=== PATIENT | male | born 1940 | race Caucasian/White ===

== ENCOUNTER 2018-02-18 11:20 | Inpatient (IN) ==
[2018-02-18] MEDS ORDERED: Sod Chloride 0.9% Inj 1,000 ML IV.SIG ONE ×2 (11:54→14:02)
[2018-02-18] MEDS ORDERED: Acetaminophen 325 MG Tablet PO ONE (11:54)
--- NOTE | 2018-02-18 12:01 | ED ---
HPI General Chief Complaint: Abdominal Pain Stated Complaint: evac/medical Time Seen by Provider: 02/18/18 11:46 Source: patient Mode of arrival: EMS Limitations: no limitations and other (hard of hearing right side) History of Present Illness HPI Narrative: 77-year-old male with PMH of gout, GERD, HTN, CAD status post CABG and stenting, on Pradaxa presents to the ED via EMS for evaluation of 24 hour history of shaking chills and one episode of abdominal pain. Patient states that he noticed chills and fever about 1:00 yesterday afternoon. He states that he had an episode of cramping right upper quadrant and bilateral lower quadrant abdominal pain today approximately 30 minutes before arrival. Currently asymptomatic. Pain is described as cramping, 8/10, no alleviating or exacerbating factors reported. The patient denies cold or flu symptoms, CP, SOB , loss of appetite, nausea, vomiting, dysuria, weakness of the extremities. He states that his last bowel movement was well formed, nonbloody, 3 days ago. He states this is not unusual for him. He endorses colonoscopy within the last 2 years. He endorses history of abdominal surgery, unsure of the procedure performed. Patient is visiting from [place]. He treated at home with ibuprofen, last dose early this morning. Per EVAC temp 100.3 on scene, administered 500mL fluid bolus en route. Related Data Home Medications Medication Instructions Recorded Confirmed allopurinol 100 mg PO DAILY 02/18/18 02/18/18 atorvastatin [Lipitor] 80 mg PO DAILY 02/18/18 02/18/18 coQ10 (ubiquinol) 200 mg PO DAILY 02/18/18 02/18/18 dabigatran etexilate [Pradaxa] 150 mg PO BID 02/18/18 02/18/18 levothyroxine [Synthroid] 75 mcg PO DAILY 02/18/18 02/18/18 metoprolol tartrate 25 mg PO DAILY 02/18/18 02/18/18 pantoprazole 20 mg PO DAILY 02/18/18 02/18/18 Allergies Allergy/AdvReac Type Severity Reaction Status Date / Time iodine Allergy Severe Swelling Verified 02/18/18 12:04 of Lip/Tongue/Throat Review of Systems ROS: all other systems reviewed are negative [facility] Medical History Medical History Aortic valve disorder (Acute) Arthritis (Acute) Bowel obstruction (Acute) CAD (coronary artery disease) (Acute) Cataract (Acute) Cataract fragments in both eyes following surgery (Acute) Constipation (Acute) Femoro-popliteal artery disease (Acute) GERD (gastroesophageal reflux disease) (Acute) Gout (Acute) HTN (hypertension) (Acute) High cholesterol (Acute) Hypothyroid (Acute) Surgical History Surgical History H/O aortic valve replacement (Acute) H/O exploratory laparotomy (Acute) History of cardiac cath (Acute) History of intestinal surgery (Acute) History of tonsillectomy (Acute) S/P CABG x 3 (Acute) Stented coronary artery (Acute) Family History Family History Other Family history of hypertension Social History Social History Substance History: No History of Abuse Second Hand Smoke Exposure: No Smoking Status: Never smoker How Often Do You Have a Drink Containing Alcohol: 2 to 4 times a month Recent Travel in [facility] within the Last 8 Weeks: No Recent Out of Country Travel within the Last 8 Weeks: No Exam Narrative Exam Narrative: GENERAL: Well-nourished, well-developed, hard of hearing on the right side white male in no acute distress. SKIN: Focused skin assessment warm/diaphoretic. HEAD: Atraumatic. Normocephalic. EYES: Pupils equal and round. No scleral icterus. No injection or drainage. ENT: No nasal bleeding or discharge. Mucous membranes pink and moist. NECK: Trachea midline. No JVD. CARDIOVASCULAR: Regular rate and rhythm. No murmur appreciated. RESPIRATORY: No accessory muscle use. Clear to auscultation. Breath sounds equal bilaterally. GASTROINTESTINAL: Abdomen soft, non-tender, nondistended. Hypoactive bowel sounds. Hepatic and splenic margins not palpable. MUSCULOSKELETAL: No obvious deformities. No clubbing. No cyanosis. No edema. NEUROLOGICAL: Awake and alert. No obvious cranial nerve deficits. Motor grossly within normal limits. Normal speech. PSYCHIATRIC: Appropriate mood and affect; insight and judgment normal. Course Initial Documented Vital Signs Temperature 99.3 F 02/18/18 11:51 Pulse Rate 86 02/18/18 11:51 Respiratory Rate 25 H 02/18/18 11:51 Blood Pressure 119/59 L 02/18/18 11:51 Pulse Oximetry 95 02/18/18 11:51 Last Documented Vital Signs Temperature 99.3 F 02/18/18 11:54 Pulse Rate 64 02/18/18 19:07 Respiratory Rate 18 02/18/18 19:07 Blood Pressure 128/56 L 02/18/18 19:07 Pulse Oximetry 99 02/18/18 19:07 Medical Decision Making MDM Narrative Medical decision making narrative: 77-year-old male with PMH of gout, GERD, HTN , CAD status post CABG and stenting, on Pradaxa presents to the ED via EMS for evaluation of 24 hour history of shaking chills and one episode of abdominal pain. Patient states that he noticed chills and fever about 1:00 yesterday afternoon. He states that he had an episode of cramping right upper quadrant and bilateral lower quadrant abdominal pain today approximately 30 minutes before arrival. Currently asymptomatic. Temp 99.3, respiratory rate 25, O2 sats 95% on room air, BP 119/59 on presentation. Physical exam reveals a pleasant white male in no acute distress. Lung sounds are clear bilaterally. Abdominal exam is unremarkable. IV was established. Patient was administered 1 L normal saline. CBC and CMP are unremarkable. X-ray reveals possible nodular or infiltrative processes in the left lingular area. D-dimer elevated. Patient is allergic to contrast dye. VQ scan low probability for DVT. CT chest reveals patchy left lower lobe infiltrate. Nodule is again seen, recommend outpatient follow-up. UA with evidence of UTI. Patient was administered 750 mg Levaquin IV. I discussed the results of the workup with the patient and his . Given his persistent hypotension, BP now 115/55 despite 2 L normal saline bolus will plan for observation admission. Patient and his are agreeable to this plan. I spoke with Dr. Crespo who agrees to accept the patient to the medicine service. Please see medicine notes for disposition. Medical Screen Exam Complete: Yes Emergency Medical Condition: Yes Lab Data Result diagrams: 02/18/18 12:04 02/18/18 12:04 Lab Results 02/18/18 02/18/18 02/18/18 Range/Units 12:04 12:04 12:04 WBC 6.7 (4.0-11.0) th/mm3 RBC 4.47 L (4.50-5.90) mil/mm3 Hgb 13.1 (13.0-17.0) gm/dL Hct 38.9 L (39.0-51.0) % MCV 86.8 (80.0-100.0) fL MCH 29.4 (27.0-34.0) pg MCHC 33.8 (32.0-36.0) % RDW 14.9 (11.6-17.2) % Plt Count 172 (150-450) th/mm3 MPV 7.8 (7.0-11.0) fL Neut % (Auto) 89.8 H (16.0-70.0) % Lymph % (Auto) 7.5 L (9.0-44.0) % [place] % (Auto) 1.8 (0.0-8.0) % Eos % (Auto) 0.6 (0.0-4.0) % Baso % (Auto) 0.3 (0.0-2.0) % Neut # (Auto) 6.0 (1.8-7.7) th/mm3 Lymph # (Auto) 0.5 L (1.0-4.8) th/mm3 [place] # (Auto) 0.1 (0.0-0.9) th/mm3 Eos # (Auto) 0.0 (0.0-0.4) th/mm3 Baso # (Auto) 0.0 (0.0-0.2) th/mm3 WBC Differential . Differential Comment Auto diff final PT 14.0 H (9.8-11.6) sec INR 1.4 Ratio D-Dimer Quant (PE/DVT) (0.00-0.50) mg/L FEU Sodium (136-145) meq/L Potassium (3.5-5.1) meq/L Chloride (98-107) meq/L Carbon Dioxide (21.0-32.0) meq/L Anion Gap (5-15) meq/L BUN (7-18) mg/dL Creatinine (0.60-1.30) mg/dL Estimated GFR (>89) mL/min Random Glucose (74-106) mg/dL Lactic Acid (0.4-2.0) mmol/L Calcium (8.5-10.1) mg/dL Total Bilirubin (0.2-1.0) mg/dL AST (15-37) U/L ALT (12-78) U/L Alkaline Phosphatase (45-117) U/L Total Protein (6.4-8.2) g/dL Albumin (3.4-5.0) g/dL Lipase 112 (73-393) U/L Urine Color (Yellw/Straw) Urine Clarity (Clear) Urine pH (5.0-8.5) Ur Specific [place] (1.002-1.035) Urine Protein (Neg-Trace) mg/dL Urine Glucose (UA) (Negative) mg/dL Urine Ketones (Negative) mg/dL Urine Occult Blood (Negative) Urine Nitrate (Negative) Urine Bilirubin (Negative) Urine Urobilinogen (Less than 2) mg/dL Ur Leukocyte Esterase (Negative) Urine RBC (0-3) /hpf Urine WBC (0-5) /hpf Urine Bacteria (None) /hpf Urine Mucus (Occasional) /lpf Micro UA Comment Ur Microscopic Review Urine Culture Comments 02/18/18 02/18/18 02/18/18 Range/Units 12:04 12:04 12:20 WBC (4.0-11.0) th/mm3 RBC (4.50-5.90) mil/mm3 Hgb (13.0-17.0) gm/dL Hct (39.0-51.0) % MCV (80.0-100.0) fL MCH (27.0-34.0) pg MCHC (32.0-36.0) % RDW (11.6-17.2) % Plt Count (150-450) th/mm3 MPV (7.0-11.0) fL Neut % (Auto) (16.0-70.0) % Lymph % (Auto) (9.0-44.0) % [place] % (Auto) (0.0-8.0) % Eos % (Auto) (0.0-4.0) % Baso % (Auto) (0.0-2.0) % Neut # (Auto) (1.8-7.7) th/mm3 Lymph # (Auto) (1.0-4.8) th/mm3 [place] # (Auto) (0.0-0.9) th/mm3 Eos # (Auto) (0.0-0.4) th/mm3 Baso # (Auto) (0.0-0.2) th/mm3 WBC Differential Differential Comment PT (9.8-11.6) sec INR Ratio D-Dimer Quant (PE/DVT) 2.38 H (0.00-0.50) mg/L FEU Sodium 139 (136-145) meq/L Potassium 4.0 (3.5-5.1) meq/L Chloride 107 (98-107) meq/L Carbon Dioxide 24.3 (21.0-32.0) meq/L Anion Gap 8 (5-15) meq/L BUN 27 H (7-18) mg/dL Creatinine 1.42 H (0.60-1.30) mg/dL Estimated GFR 49 L (>89) mL/min Random Glucose 80 (74-106) mg/dL Lactic Acid 1.8 (0.4-2.0) mmol/L Calcium 8.2 L (8.5-10.1) mg/dL Total Bilirubin 1.6 H (0.2-1.0) mg/dL AST 16 (15-37) U/L ALT 21 (12-78) U/L Alkaline Phosphatase 92 (45-117) U/L Total Protein 6.6 (6.4-8.2) g/dL Albumin 3.3 L (3.4-5.0) g/dL Lipase (73-393) U/L Urine Color (Yellw/Straw) Urine Clarity (Clear) Urine pH (5.0-8.5) Ur Specific [place] (1.002-1.035) Urine Protein (Neg-Trace) mg/dL Urine Glucose (UA) (Negative) mg/dL Urine Ketones (Negative) mg/dL Urine Occult Blood (Negative) Urine Nitrate (Negative) Urine Bilirubin (Negative) Urine Urobilinogen (Less than 2) mg/dL Ur Leukocyte Esterase (Negative) Urine RBC (0-3) /hpf Urine WBC (0-5) /hpf Urine Bacteria (None) /hpf Urine Mucus (Occasional) /lpf Micro UA Comment Ur Microscopic Review Urine Culture Comments 02/18/18 Range/Units 16:55 WBC (4.0-11.0) th/mm3 RBC (4.50-5.90) mil/mm3 Hgb (13.0-17.0) gm/dL Hct (39.0-51.0) % MCV (80.0-100.0) fL MCH (27.0-34.0) pg MCHC (32.0-36.0) % RDW (11.6-17.2) % Plt Count (150-450) th/mm3 MPV (7.0-11.0) fL Neut % (Auto) (16.0-70.0) % Lymph % (Auto) (9.0-44.0) % [place] % (Auto) (0.0-8.0) % Eos % (Auto) (0.0-4.0) % Baso % (Auto) (0.0-2.0) % Neut # (Auto) (1.8-7.7) th/mm3 Lymph # (Auto) (1.0-4.8) th/mm3 [place] # (Auto) (0.0-0.9) th/mm3 Eos # (Auto) (0.0-0.4) th/mm3 Baso # (Auto) (0.0-0.2) th/mm3 WBC Differential Differential Comment PT (9.8-11.6) sec INR Ratio D-Dimer Quant (PE/DVT) (0.00-0.50) mg/L FEU Sodium (136-145) meq/L Potassium (3.5-5.1) meq/L Chloride (98-107) meq/L Carbon Dioxide (21.0-32.0) meq/L Anion Gap (5-15) meq/L BUN (7-18) mg/dL Creatinine (0.60-1.30) mg/dL Estimated GFR (>89) mL/min Random Glucose (74-106) mg/dL Lactic Acid (0.4-2.0) mmol/L Calcium (8.5-10.1) mg/dL Total Bilirubin (0.2-1.0) mg/dL AST (15-37) U/L ALT (12-78) U/L Alkaline Phosphatase (45-117) U/L Total Protein (6.4-8.2) g/dL Albumin (3.4-5.0) g/dL Lipase (73-393) U/L Urine Color Yellow (Yellw/Straw) Urine Clarity Hazy H (Clear) Urine pH 5.0 (5.0-8.5) Ur Specific [place] 1.008 (1.002-1.035) Urine Protein Negative (Neg-Trace) mg/dL Urine Glucose (UA) Negative (Negative) mg/dL Urine Ketones Trace (Negative) mg/dL Urine Occult Blood Moderate H (Negative) Urine Nitrate Positive H (Negative) Urine Bilirubin Negative (Negative) Urine Urobilinogen 2.0 H (Less than 2) mg/dL Ur Leukocyte Esterase Large H (Negative) Urine RBC 2 (0-3) /hpf Urine WBC 54 H (0-5) /hpf Urine Bacteria Moderate H (None) /hpf Urine Mucus Few H (Occasional) /lpf Micro UA Comment Culture indicated Ur Microscopic Review Not Reportable Urine Culture Comments Culture indicated Imaging Data Radiologist's impression: Chest X-Ray 02/18/18 11:55 CONCLUSION: Mild increased density at the left base likely related to mild atelectasis or consolidation. There is questionable nodularity seen in the left lower lung adjacent to left heart border. This could be followed up with a CT examination of the chest. Pulmonary Perfusion Imaging 02/18/18 14:06 CONCLUSION: Nonsegmental perfusion abnormalities, as such low probability for pulmonary embolism. Chest CT 02/18/18 15:56 CONCLUSION: 1. Lingular infiltrate and small left effusion. 2. Tiny right lung nodules can be followed. Discharge Plan Discharge Disposition Patient Disposition: 30 Still Patient Discharge Details Diagnosis: Left lower lobe pneumonia, Urinary tract infection Physicians Team ED Provider: Matilde Carpio ED Midlevel Provider: Verona Corado Attending Provider: Solo Crespo Discharge Interventions Interventions: Vital Signs Last Done: 02/18/18 16:00 Status ED Status: Admitted Observation Patient
--- NOTE | 2018-02-18 12:46 | XR ---
EXAM DATE: 02/18/2018 12:23 PM EDT AGE/SEX: 77 years / Male INDICATIONS: Fever. Patient complains of groin pain, and is shaking. CLINICAL DATA: This is the patient's initial encounter. Patient reports that signs and symptoms have been present for 1 day and indicates a pain score of 0/10. MEDICAL/SURGICAL HISTORY: None. CABG. Open heart in 2005. COMPARISON: No prior exams available for comparison. FINDINGS: The patient is status post sternotomy. The heart size is normal. There is increased density at the le ft lower lung. There is some questionable nodularity seen at the left lower lung. The right lung is c lear. A significant effusion is not appreciated. CONCLUSION: Mild increased density at the left base likely related to mild atelectasis or consolidation. There is questionable nodularity seen in the left lower lung adjacent to left heart border. This could be fol lowed up with a CT examination of the chest. Electronically signed by: Dez Crandall MD 02/18/2018 12:45 PM EDT
[2018-02-18 13:03] LABS: Baso % (Auto) 0.3 % (0.0-2.0); Eos % (Auto) 0.6 % (0.0-4.0); Hematocrit 38.9 % (39.0-51.0); Hemoglobin 13.1 gm/dL (13.0-17.0); Lymph # (Auto) 0.5 th/mm3 (1.0-4.8); Lymph % (Auto) 7.5 % (9.0-44.0); Mean Corpuscular HGB Conc 33.8 % (32.0-36.0); Mean Corpuscular Hemoglobin 29.4 pg (27.0-34.0); Mean Corpuscular Volume 86.8 fL (80.0-100.0); Mean Platelet Volume 7.8 fL (7.0-11.0); Mono # (Auto) 0.1 th/mm3 (0.0-0.9); Mono % (Auto) 1.8 % (0.0-8.0); Neut % (Auto) 89.8 % (16.0-70.0); Platelet Count 172 th/mm3 (150-450); Red Blood Count 4.47 mil/mm3 (4.50-5.90); Red Cell Distribution Width 14.9 % (11.6-17.2); White Blood Count 6.7 th/mm3 (4.0-11.0)
[2018-02-18 13:08] LABS: INR 1.4 Ratio
[2018-02-18 13:48] LABS: Alanine Aminotransferase 21 U/L (12-78); Albumin 3.3 g/dL (3.4-5.0); Anion Gap 8 meq/L (5-15); Aspartate Aminotransferase 16 U/L (15-37); Blood Urea Nitrogen 27 mg/dL (7-18); Calcium 8.2 mg/dL (8.5-10.1); Carbon Dioxide 24.3 meq/L (21.0-32.0); Chloride 107 meq/L (98-107); Glomerular Filtration Rate 49 mL/min (>89); Glucose,Random 80 mg/dL (74-106); Sodium 139 meq/L (136-145)
[2018-02-18 13:50] LABS: Alkaline Phosphatase 92 U/L (45-117); Total Protein 6.6 g/dL (6.4-8.2)
--- NOTE | 2018-02-18 15:51 | NM ---
EXAM DATE: 02/18/2018 3:45 PM EDT AGE/SEX: 77 years / Male INDICATIONS: Embolism. CLINICAL DATA: This is the patient's initial encounter. Patient reports that signs and symptoms have been present for 1 day and indicates a pain score of 7/10. MEDICAL/SURGICAL HISTORY: Hypertension. Hypothyroidism. Hypercholesterolemia. GERD, Gout, Ar thritis, Coronary artery disease, Femoro-popliteal artery disease. Coronary artery stent. Tonsillec rey. CABG x3, aortic valve replacement, intestinal surgery. COMPARISON: [facility], CHEST 1V SINGLE AP, 02/18/2018. . DOSE: 1.17 mCi Tc99m DTPA aerosol 8.1 mCi Tc99m MAA IV TECHNIQUE: Following five minutes of tidal breathing of DTPA aerosol, planar images of the lungs wer e performed in eight projections. The patient was then injected with MAA, and eight-view perfusion s can was performed. FINDINGS: There is patchy mild nonsegmental perfusion heterogeneity mainly involving the left lung. Ventilation shows similar mild heterogeneity with moderate central deposition of radiotracer. The chest radiogra ph reveals patchy airspace opacity in the left lung base. CONCLUSION: Nonsegmental perfusion abnormalities, as such low probability for pulmonary embolism. Electronically signed by: Dez Pozo MD 02/18/2018 3:50 PM EDT
--- NOTE | 2018-02-18 17:04 | CT ---
EXAM DATE: 02/18/2018 4:51 PM EDT AGE/SEX: 77 years / Male INDICATIONS: Fever. Abnormality on chest x-ray. CLINICAL DATA: This is the patient's initial encounter. Patient reports that signs and symptoms have been present for 1 day and indicates a pain score of 0/10. MEDICAL/SURGICAL HISTORY: Cardiovascular disease. Gastroesophageal reflux disease. Hypertension. CABG. RADIATION DOSE: 13.76 CTDI (mGy) COMPARISON: [facility], CHEST 1V SINGLE AP, 02/18/2018. . TECHNIQUE: Multiple contiguous axial images were obtained through the chest without contrast. Image s were obtained in suspended respiration using multiple row detector helical technique. Using automa dee exposure control and adjustment of the mA and/or kV according to patient size, radiation dose was kept as low as reasonably achievable to obtain optimal diagnostic quality images. DICOM format imag e data is available electronically for review and comparison. FINDINGS: There is small focus of consolidative infiltrate in the lingula. There is mild fissural fluid or thic kening and small volume of dependent left pleural fluid. There are couple of tiny peripheral nodules in the contralateral right lung, neither exceeding 5 mm There is dense atherosclerotic vascular calcification present, including within the coronaries. There is no evidence of mediastinal mass or lymphadenopathy. In the upper abdomen, cysts are present in the liver CONCLUSION: 1. Lingular infiltrate and small left effusion. 2. Tiny right lung nodules can be followed. Electronically signed by: Dez Pozo MD 02/18/2018 5:03 PM EDT
[2018-02-18] MEDS ORDERED: levoFLOXacin 750 MG Tablet PO ONE (17:10)
[2018-02-18 17:28] LABS: Bacteria,Urine Moderate /hpf; Bilirubin,Urine Negative (Negative); Clarity,Urine Hazy (Clear); Color,Urine Yellow (Yellw/Straw); Glucose,Urine (UA) Negative (Negative); Leukocyte Esterase,Urine Large (Negative); Mucus,Urine Few /lpf (Occasional); Nitrite,Urine Positive (Negative); Specific Gravity,Urine 1.008 (1.002-1.035)
[2018-02-18] MEDS ORDERED: Acetaminophen 325 MG Tablet PO PRN (18:32)
[2018-02-18] MEDS ORDERED: Temazepam 15 MG Capsule PO PRN (18:34)
[2018-02-18] MEDS ORDERED: Bisacodyl 10 MG Supp RECTAL PRN (18:34)
[2018-02-18] MEDS ORDERED: Naloxone Inj 0.4 MG/ML Vial IV.PUSH PRN (18:35)
[2018-02-18] MEDS ORDERED: oxyCODONE/Acetaminophen 10/325 Tablet PO PRN (18:35)
[2018-02-18] MEDS ORDERED: Morphine Sulfate Inj 2 MG/ML Vial IV.PUSH PRN (18:35)
[2018-02-18] MEDS ORDERED: Morphine Inj 4 MG/ML Vial IV.PUSH PRN (18:35)
--- NOTE | 2018-02-18 18:37 | P.HPIM ---
History of Present Illness Service: [facility] Primary Care Physician: Steve Medrano Chief Complaint: ABDOMINAL PAIN History of Present Illness: Patient is a 77-year-old male with past medical history of gout, GERD , hypertension, coronary artery disease with history of CABG and stenting as well as aortic valve surgery, and history of peripheral vascular occlusive disease with history of femoropopliteal bypass and femoral/iliac stenting. Patient also is on Pradaxa chronically. He presented to the emergency department with evaluation of a 24 hour history of shaking and chills and some abdominal pain. Patient states that he noted chills and fever yesterday afternoon. He then had some cramping in the right upper quadrant and bilateral lower quadrant abdominal pain today 30 minutes or so prior to presenting to the emergency department. Had cramping pain. Denies any cold or flulike symptoms. Denies any chest pain denies any shortness of breath denies any loss of appetite denies any nausea denies any vomiting denies any dysuria denies any weakness of the extremities. States his last bowel movement was formed 3 days ago. Had a colonoscopy 2 years ago. Has history of abdominal surgeries in the past with exploratory laparotomy patient is visiting from [place]. He is noted to have a temperature of 100.3 was given fluids. Was found to have pneumonia as well as a urinary tract infection. Had been started on Levaquin. We will adjust the medications Review of Systems All other systems reviewed negative except as stated in HPI [facility] - History History Provided By: Patient, Brass Sorter / EMT - Medical History Medical History: Medical History (Last Updated 02/18/18 @ 18:24 by Cayetano Pinto DO) Aortic valve disorder Arthritis Bowel obstruction CAD (coronary artery disease) Cataract Cataract fragments in both eyes following surgery Constipation Femoro-popliteal artery disease GERD (gastroesophageal reflux disease) Gout HTN (hypertension) High cholesterol Hypothyroid - Surgical History Surgical History: Surgical History (Last Updated 02/18/18 @ 12:47 by Otilia Lieberman) H/O aortic valve replacement H/O exploratory laparotomy History of cardiac cath History of intestinal surgery History of tonsillectomy S/P CABG x 3 Stented coronary artery - Family History Family History: Family History (Last Updated 02/18/18 @ 18:24 by Cayetano Pinto DO) Other Family history of hypertension - Tobacco History Second Hand Smoke Exposure: No Tobacco Use In Past 30 Days: No Smoking Status: Never smoker - Alcohol History How Often Do You Have a Drink Containing Alcohol: 2 to 4 times a month - Substance Use History Substance History: No History of Abuse - Travel History Recent Travel in the [place] Within the Last 8 Weeks: No Recent Travel Out of the Country Within the Last 8 Weeks: No - Immunization History Tetanus Immunization: <5 Years Hx Influenza Vaccine This Season: Yes Medications and Allergies Active Medications: Active Medications Al Hydroxide/Mg Hydroxide (Milk Of Tiffany Espinoza) 30 ml PO Q12H PRN PRN Reason: Mild Constipation Allopurinol (Zyloprim) 100 mg PO DAILY DOUG Atorvastatin Calcium (Lipitor) 80 mg PO DAILY DOUG Dabigatran (Pradaxa) 150 mg PO BID DOUG Levofloxacin/Dextrose (Levaquin 750 Mg Premix Inj) 150 mls @ 100 mls/hr IV.SIG ONCE ONE Stop: 02/18/18 18:42 Last Admin: 02/18/18 17:28 Dose: 100 mls/hr Levofloxacin/Dextrose (Levaquin 500 Mg Premix Inj) 500 mg in 100 mls @ 100 mls/ hr IV.SIG Q24H DOUG Lactobacillus Acidophilus (Lactinex) 1 tab PO TID DOUG Levothyroxine Sodium (Synthroid) 75 mcg PO DAILY DOUG Metoprolol Tartrate (Lopressor) 25 mg PO DAILY DOUG Ondansetron HCl (Zofran Inj) 4 mg IV.PUSH Q6H PRN PRN Reason: NAUSEA OR VOMITING Pantoprazole Sodium (Protonix) 20 mg PO DAILY DOUG Sodium Chloride (Ns Flush) 2 ml IV.FLUSH PRN PRN PRN Reason: FLUSH AFTER USING IV ACCESS Last Admin: 02/18/18 12:42 Dose: 2 ml Allergies Allergy/AdvReac Type Severity Reaction Status Date / Time iodine Allergy Severe Swelling Verified 02/18/18 12:04 of Lip/Tongue/Throat Home Medications Medication Instructions Recorded Confirmed Type allopurinol 100 mg PO DAILY 02/18/18 02/18/18 History atorvastatin [Lipitor] 80 mg PO DAILY 02/18/18 02/18/18 History coQ10 (ubiquinol) 200 mg PO DAILY 02/18/18 02/18/18 History dabigatran etexilate [Pradaxa] 150 mg PO BID 02/18/18 02/18/18 History levothyroxine [Synthroid] 75 mcg PO DAILY 02/18/18 02/18/18 History metoprolol tartrate 25 mg PO DAILY 02/18/18 02/18/18 History pantoprazole 20 mg PO DAILY 02/18/18 02/18/18 History Exam Vital signs: Vital Signs 02/18/18 11:51 02/18/18 11:54 02/18/18 12:04 Temperature 99.3 F 99.3 F Pulse Rate 86 82 Respiratory Rate 25 H 25 H Blood Pressure 119/59 L 119/59 L Pulse Oximetry 95 95 02/18/18 16:00 Temperature Pulse Rate 61 Respiratory Rate 18 Blood Pressure 115/55 L Pulse Oximetry 98 Intake & Output 02/17/18 02/18/18 02/18/18 18:59 06:59 18:59 Intake Total 1000 / 1000 Balance 1000 / 1000 Weight 88.451 kg Intake: IV 1000 / 1000 Narrative: GENERAL: Awake alert and oriented 3 talkative and cooperative SKIN: Warm and dry. HEAD: Atraumatic. Normocephalic. EYES: Pupils equal and round. No scleral icterus. No injection or drainage. EOMI ENT: No nasal bleeding or discharge. Mucous membranes pink and moist. Tongue midline NECK: Trachea midline. No JVD. Supple CARDIOVASCULAR: IRRegular rate and rhythm. S1-S2 no S3 or S4 RESPIRATORY: No accessory muscle use. Clear to auscultation. Breath sounds equal bilaterally. Few scattered rhonchi GASTROINTESTINAL: Abdomen soft, non-tender, nondistended. Hepatic and splenic margins not palpable. MUSCULOSKELETAL: Extremities without clubbing, cyanosis, or edema. No obvious deformities. NEUROLOGICAL: Awake and alert. No obvious cranial nerve deficits. Motor grossly within normal limits. Five out of 5 muscle strength in the arms and legs. Normal speech. PSYCHIATRIC: Appropriate mood and affect; insight and judgment normal. Results - Labs CBC & Chem 7: 02/18/18 12:04 02/18/18 12:04 Labs: Short CBC 02/18/18 Range/Units 12:04 WBC 6.7 (4.0-11.0) th/mm3 Hgb 13.1 (13.0-17.0) gm/dL Hct 38.9 L (39.0-51.0) % Plt Count 172 (150-450) th/mm3 BMP 02/18/18 12:04 Sodium 139 Potassium 4.0 Chloride 107 Carbon Dioxide 24.3 BUN 27 H Creatinine 1.42 H Calcium 8.2 L Liver Function 02/18/18 Range/Units 12:04 Total Bilirubin 1.6 H (0.2-1.0) mg/dL AST 16 (15-37) U/L ALT 21 (12-78) U/L Alkaline Phosphatase 92 (45-117) U/L Albumin 3.3 L (3.4-5.0) g/dL Urine 02/18/18 Range/Units 16:55 Urine Color Yellow (Yellw/Straw) Urine Clarity Hazy H (Clear) Urine pH 5.0 (5.0-8.5) Ur Specific [place] 1.008 (1.002-1.035) Urine Protein Negative (Neg-Trace) mg/dL Urine Glucose (UA) Negative (Negative) mg/dL - Imaging Impressions Chest X-Ray 02/18/18 11:55 CONCLUSION: Mild increased density at the left base likely related to mild atelectasis or consolidation. There is questionable nodularity seen in the left lower lung adjacent to left heart border. This could be followed up with a CT examination of the chest. Pulmonary Perfusion Imaging 02/18/18 14:06 CONCLUSION: Nonsegmental perfusion abnormalities, as such low probability for pulmonary embolism. Chest CT 02/18/18 15:56 CONCLUSION: 1. Lingular infiltrate and small left effusion. 2. Tiny right lung nodules can be followed. Caprini VTE Risk Assessment Caprini VTE Risk Assessment: Moderate/High Risk (score >= 2) Caprini Risk Assessment Model: Point Value = 1 Point Value = 2 Point Value = 3 Point Value = 5 Age 41-60 Minor surgery BMI > 25 kg/m2 Swollen legs Varicose veins or History of unexplained or recurrent spontaneous Oral contraceptives or hormone replacement Sepsis (< 1 month) Serious lung disease, including pneumonia (< 1 month) Abnormal pulmonary function Acute myocardial infarction Congestive heart failure (< 1 month) History of inflammatory bowel disease Medical patient at bed rest Age 61-74 Arthroscopic surgery Major open surgery (> 45 min) Laparoscopic surgery (> 45 min) Malignancy Confined to bed (> 72 hours) Immobilizing plaster cast Central venous access Age >= 75 History of VTE Family history of VTE Factor V Leiden Prothrombin [id number] Lupus anticoagulant Anticardiolipin antibodies Elevated serum homocysteine Heparin-induced thrombocytopenia Other congenital or acquired thrombophilia Stroke (< 1 month) Elective arthroplasty Hip, pelvis, or leg fracture Acute spinal cord injury (< 1 month) Prophylaxis Regimen: Total Risk Factor Score Risk Level Prophylaxis Regimen 0-1 Low Early ambulation 2 Moderate Order ONE of the following: *Sequential Compression Device (SCD) *Heparin 5000 units SQ BID 3-4 Higher Order ONE of the following medications: *Heparin 5000 units SQ TID *Enoxaparin/Lovenox 40 mg SQ daily (WT < 150 kg, CrCl > 30 mL/min) *Enoxaparin/Lovenox 30 mg SQ daily (WT < 150 kg, CrCl > 10-29 mL/min) *Enoxaparin/Lovenox 30 mg SQ BID (WT < 150 kg, CrCl > 30 mL/min) AND/OR *Sequential Compression Device (SCD) 5 or more Highest Order ONE of the following medications: *Heparin 5000 units SQ TID (Preferred with Epidurals) *Enoxaparin/Lovenox 40 mg SQ daily (WT < 150 kg, CrCl > 30 mL/min) *Enoxaparin/Lovenox 30 mg SQ daily (WT < 150 kg, CrCl > 10-29 mL/min) *Enoxaparin/Lovenox 30 mg SQ BID (WT < 150 kg, CrCl > 30 mL/min) AND *Sequential Compression Device (SCD) Assessment and Plan - Plan Positive pneumonia we will adjust antibiotics to Rocephin and Zithromax Continue on Mucinex Duo nebs Incentive spirometry Urinary tract infection -Continue on the Rocephin which will cover this Coronary artery disease continue on his Pradaxa History of peripheral vascular occlusive disease with femoropopliteal artery disease continue on Pradaxa Hypertension resume home medications continue on metoprolol tartrate 25 mg p.o. daily Hypothyroidism we will check TSH and free T4 continue home medications continue on levothyroxine 75 MCG's daily Gout continue on allopurinol Hyperlipidemia continue on Lipitor GERD continue on Protonix A.m. labs DVT prophylaxis with Pradaxa GI prophylaxis with Protonix Code Status: Full code Discussed Condition With: RN and patient and emergency room PA Discharge Planning: Hopefully home in the next 24-48 hours on Ceftin and Zithromax
[2018-02-18] MEDS: Lactobacillus Acidophilus/L. Spores Tablet PO SCH (19:48)
[2018-02-18 20:50] LABS: Troponin I 0.06 ng/mL (0.02-0.05)
[2018-02-18] MEDS: Azithromycin Inj 500 MG in Sodium Chlor 0.9% Inj 250 ML IV.SIG SCH (20:50)
[2018-02-18] MEDS: guaiFENesin 600 MG ER Tablet PO SCH (20:57)
[2018-02-18] MEDS: Senna/Docusate Sodium 8.6/50 MG Tablet PO SCH (20:57)
[2018-02-19 03:04] LABS: Baso # (Auto) 0.2 th/mm3 (0.0-0.2); Baso % (Auto) 1.5 % (0.0-2.0); Eos # (Auto) 0.1 th/mm3 (0.0-0.4); Eos % (Auto) 0.9 % (0.0-4.0); Hematocrit 38.5 % (39.0-51.0); Hemoglobin 12.9 gm/dL (13.0-17.0); Lymph # (Auto) 0.8 th/mm3 (1.0-4.8); Lymph % (Auto) 7.1 % (9.0-44.0); Mean Corpuscular HGB Conc 33.6 % (32.0-36.0); Mean Corpuscular Hemoglobin 29.6 pg (27.0-34.0); Mean Corpuscular Volume 88.1 fL (80.0-100.0); Mean Platelet Volume 7.9 fL (7.0-11.0); Mono # (Auto) 0.8 th/mm3 (0.0-0.9); Mono % (Auto) 7.8 % (0.0-8.0); Neut # (Auto) 8.7 th/mm3 (1.8-7.7); Neut % (Auto) 82.7 % (16.0-70.0); Platelet Count 154 th/mm3 (150-450); Red Blood Count 4.37 mil/mm3 (4.50-5.90); Red Cell Distribution Width 14.9 % (11.6-17.2); White Blood Count 10.6 th/mm3 (4.0-11.0)
[2018-02-19 03:14] LABS: Alanine Aminotransferase 22 U/L (12-78); Anion Gap 6 meq/L (5-15); Aspartate Aminotransferase 21 U/L (15-37); Blood Urea Nitrogen 23 mg/dL (7-18); Calcium 7.7 mg/dL (8.5-10.1); Carbon Dioxide 23.6 meq/L (21.0-32.0); Chloride 109 meq/L (98-107); Glomerular Filtration Rate 52 mL/min (>89); Glucose,Random 108 mg/dL (74-106); Magnesium 1.8 mg/dL (1.5-2.5); Phosphorus 1.9 mg/dL (2.5-4.9); Potassium 4.3 meq/L (3.5-5.1); Sodium 139 meq/L (136-145)
[2018-02-19 03:18] LABS: Alkaline Phosphatase 85 U/L (45-117); Creatine Kinase 268 U/L (39-308); Total Protein 6.5 g/dL (6.4-8.2); Troponin I 0.05 ng/mL (0.02-0.05)
[2018-02-19 03:24] LABS: Chol/HDL Ratio 2.58 Ratio; Free T4 (Free Thyroxine) 0.98 ng/dL (0.76-1.46); HDL Cholesterol 40.6 mg/dL (40.0-60.0); Thyroid Stimulating Hormone 1.17 uIU/mL (0.358-3.740)
[2018-02-19] MEDS: Levothyroxine 75 MCG Tablet PO SCH (05:37)
[2018-02-19] MEDS ORDERED: Metoprolol Tartrate 25 MG Tablet PO SCH (09:00)
[2018-02-19] MEDS: Lactobacillus Acidophilus/L. Spores Tablet PO SCH ×3 (11:07→18:43)
[2018-02-19] MEDS: Pantoprazole Sodium 20 MG DR Tablet PO SCH (11:08)
[2018-02-19] MEDS: Allopurinol 100 MG Tablet PO SCH (11:08)
[2018-02-19] MEDS: Senna/Docusate Sodium 8.6/50 MG Tablet PO SCH ×2 (11:08→20:34)
[2018-02-19] MEDS: guaiFENesin 600 MG ER Tablet PO SCH ×2 (11:08→20:34)
--- NOTE | 2018-02-19 14:15 | P.PN ---
Subjective Interval history: feels well and looks well denies any urinary symptoms minimal couhg- minimal sputum no flank pain Physical Exam Vital signs: Vital Signs 02/18/18 16:00 02/18/18 19:07 02/18/18 20:00 Temperature Pulse Rate 61 64 63 Respiratory Rate 18 18 20 Blood Pressure 115/55 L 128/56 L 130/60 Pulse Oximetry 98 99 02/18/18 20:26 02/18/18 23:59 02/19/18 03:10 Temperature Pulse Rate 64 67 80 Respiratory Rate 18 16 20 Blood Pressure 126/58 L Pulse Oximetry 96 02/19/18 05:54 02/19/18 07:18 02/19/18 10:35 Temperature Pulse Rate 66 71 72 Respiratory Rate 15 18 17 Blood Pressure 118/55 L 130/60 Pulse Oximetry 97 98 02/19/18 11:06 02/19/18 12:00 Temperature 98.0 F Pulse Rate 85 60 Respiratory Rate 18 18 Blood Pressure 150/63 H 155/68 H Pulse Oximetry 98 97 Intake & Output 02/18/18 02/19/18 02/19/18 18:59 06:59 18:59 Intake Total 1000 / 1000 1350 / 1350 Balance 1000 / 1000 1350 / 1350 Weight 88.451 kg Intake: IV 1000 / 1000 1350 / 1350 LR 1000 mL Inj 1,000 ML @ 100 1000 / 1000 mls/hr IV.CONT .Q10H DOUG Rx#: [id number] Azithromycin Inj 500 MG In NS 250 / 250 Inj 250 ML @ 250 mls/hr IV.SIG Q24H DOUG Rx#:[id number] Rocephin Inj 1,000 MG In NS Inj 100 / 100 100 ML @ 200 mls/hr IV.SIG Q24H DOUG Rx#:[id number] Narrative: awaeka nda lert, no distres anicteric lungs- no rales regular rhythm abdopmensoft, nontender extremities no edema neuro exam non focal Results - Labs CBC & Chem 7: 02/19/18 02:27 02/19/18 02:27 Laboratory Results - last 24 hr 02/18/18 02/18/18 02/18/18 12:04 16:55 20:06 WBC RBC Hgb Hct MCV MCH MCHC RDW Plt Count MPV Neut % (Auto) Lymph % (Auto) Iron % (Auto) Eos % (Auto) Baso % (Auto) Neut # (Auto) Lymph # (Auto) Iron # (Auto) Eos # (Auto) Baso # (Auto) WBC Differential Differential Comment D-Dimer Quant (PE/DVT) 2.38 H Sodium Potassium Chloride Carbon Dioxide Anion Gap BUN Creatinine Estimated GFR Random Glucose Calcium Phosphorus Magnesium Total Bilirubin AST ALT Alkaline Phosphatase Total Creatine Kinase 250 Troponin I 0.06 H Total Protein Albumin Triglycerides Cholesterol LDL Cholesterol, Calc HDL Cholesterol Cholesterol/HDL Ratio TSH Free T4 Urine Color Yellow Urine Clarity Hazy H Urine pH 5.0 Ur Specific [place] 1.008 Urine Protein Negative Urine Glucose (UA) Negative Urine Ketones Trace Urine Occult Blood Moderate H Urine Nitrate Positive H Urine Bilirubin Negative Urine Urobilinogen 2.0 H Ur Leukocyte Esterase Large H Urine RBC 2 Urine WBC 54 H Urine Bacteria Moderate H Urine Mucus Few H Micro UA Comment Culture indicated Ur Microscopic Review Not Reportable Urine Culture Comments Culture indicated 02/19/18 02/19/18 02/19/18 02:27 02:27 02:27 WBC 10.6 D RBC 4.37 L Hgb 12.9 L Hct 38.5 L MCV 88.1 MCH 29.6 MCHC 33.6 RDW 14.9 Plt Count 154 MPV 7.9 Neut % (Auto) 82.7 H Lymph % (Auto) 7.1 L Iron % (Auto) 7.8 Eos % (Auto) 0.9 Baso % (Auto) 1.5 Neut # (Auto) 8.7 H Lymph # (Auto) 0.8 L Iron # (Auto) 0.8 Eos # (Auto) 0.1 Baso # (Auto) 0.2 WBC Differential . Differential Comment Auto diff final D-Dimer Quant (PE/DVT) Sodium 139 Potassium 4.3 Chloride 109 H Carbon Dioxide 23.6 Anion Gap 6 BUN 23 H Creatinine 1.33 H Estimated GFR 52 L Random Glucose 108 H Calcium 7.7 L Phosphorus 1.9 L Magnesium 1.8 Total Bilirubin 0.8 AST 21 ALT 22 Alkaline Phosphatase 85 Total Creatine Kinase 268 Troponin I 0.05 Total Protein 6.5 Albumin 3.0 L Triglycerides 67 Cholesterol 105 L LDL Cholesterol, Calc 51 HDL Cholesterol 40.6 Cholesterol/HDL Ratio 2.58 TSH 1.170 Free T4 0.98 Urine Color Urine Clarity Urine pH Ur Specific [place] Urine Protein Urine Glucose (UA) Urine Ketones Urine Occult Blood Urine Nitrate Urine Bilirubin Urine Urobilinogen Ur Leukocyte Esterase Urine RBC Urine WBC Urine Bacteria Urine Mucus Micro UA Comment Ur Microscopic Review Urine Culture Comments Microbiology 02/18/18 16:55 Clean Catch Urine Urine Culture - Preliminary gram negative rods 02/18/18 12:15 Blood - Peripheral Aerobic Blood Culture - Preliminary No growth in 1 day 02/18/18 12:15 Blood - Peripheral Anaerobic Blood Culture - Preliminary gram negative rods 02/18/18 12:05 Blood - Peripheral Aerobic Blood Culture - Preliminary No growth in 1 day 02/18/18 12:05 Blood - Peripheral Anaerobic Blood Culture - Preliminary Escherichia coli 02/18/18 13:10 Nasal Wash Influenza Types A,B Antigen - Final Negative for FLU A and B antigen Infection due to influenza A or B cannot be ruled out since the antigen present in the sample may be below the detection limit of the test. - Imaging Impressions Pulmonary Perfusion Imaging 02/18/18 14:06 CONCLUSION: Nonsegmental perfusion abnormalities, as such low probability for pulmonary embolism. Chest CT 02/18/18 15:56 CONCLUSION: 1. Lingular infiltrate and small left effusion. 2. Tiny right lung nodules can be followed. Assessment and Plan - Plan 77 years old Gram negative sepsis likely from UTI Pneumonia- lingular infiltrate on CXR - continue on Rocephin and Zithromax Continue on Mucinex Duo nebs Incentive spirometry repeat blood cultures after 48 hours on IV antibiotics to ensure clearance ARRON- continue IVF BMP i am Coronary artery disease continue on his Pradaxa History of peripheral vascular occlusive disease with femoropopliteal artery disease continue on Pradaxa Hypertension resume home medications continue on metoprolol tartrate 25 mg p.o. daily Hypothyroidism we will check TSH and free T4 continue home medications continue on levothyroxine 75 MCG's daily Gout continue on allopurinol Hyperlipidemia continue on Lipitor GERD continue on Protonix DVT prophylaxis with Pradaxa. encourage up and ambulate d/w with apatient in details, plan GI prophylaxis with Protonix
--- NOTE | 2018-02-19 14:53 | ECG ---
Date Performed: 02/18/2018 Time Performed: 20:14:46 PTAGE: 77 years EKG: SINUS BRADYCARDIA WITH FIRST DEGREE AV BLOCK RIGHT BUNDLE BRANCH BLOCK LEFT ANTERIOR FASCIC ULAR BLOCK PACER SPIKES APPEAR INTERMITTENTLY, PROBABLY PACED RHYTHM BUT Clinical correlation is myra mmended ABNORMAL ECG NO PREVIOUS TRACING DOCTOR: Asael Nowak Interpretating Date/Time 02/19/2018 14:52:20
[2018-02-19] MEDS ORDERED: Levofloxacin 500 mg Premix Inj 500 MG/100 ML PIGGYBACK IV.SIG SCH (16:00)
--- NOTE | 2018-02-19 16:03 | US ---
EXAM DATE: 02/19/2018 3:56 PM EDT AGE/SEX: 77 years / Male INDICATIONS: Urinary tract infection. CLINICAL DATA: This is the patient's initial encounter. Patient reports that signs and symptoms have been present for 4 - 6 days and indicates a pain score of 0/10. MEDICAL/SURGICAL HISTORY: Arthritis. Hypercholesterolemia. Hypertension. Aortic valve disord er. Bowel obstruction. Coronary artery disease. Gout. Hypothyroidism. Tonsillectomy. CABG. Aortic valve replacement. Exploratory laparotomy. Cardiac catheterization. Intestinal surgery. Coronary aj ry stent. COMPARISON: No prior exams available for comparison. MEASUREMENTS: Right Kidney:__11.1 x 5.4 x 5.9 cm Left Kidney:__11.5 x 5.9 x 5.7 cm FINDINGS: Right Kidney: Normal echotexture and cortical thickness. No mass or hydronephrosis. Left Kidney: Normal echotexture and cortical thickness. No mass or hydronephrosis. Bladder: Within normal limits given the degree of distension. Other: None. CONCLUSION: 1. Unremarkable bilateral renal ultrasound. Electronically signed by: Robbie Casillas MD 02/19/2018 4:02 PM EDT
[2018-02-19 16:41] LABS: Hemoglobin A1c 6.4 % (4.3-6.0)
[2018-02-19] MEDS: Sod Chloride 0.9% Inj 1,000 ML IV.CONT SCH (18:44)
[2018-02-19] MEDS: Azithromycin Inj 500 MG in Sodium Chlor 0.9% Inj 250 ML IV.SIG SCH (20:33)
[2018-02-20] MEDS: Sod Chloride 0.9% Inj 1,000 ML IV.CONT SCH ×2 (04:59→16:11)
[2018-02-20] MEDS: Levothyroxine 75 MCG Tablet PO SCH (05:00)
--- NOTE | 2018-02-20 07:58 | P.PN ---
Subjective Interval history: awake and alert, no complains no urinary symptoms, no flank pain afebrile some elevated BP readings- anxious- wanting to go home - here on vacation Physical Exam Vital signs: Vital Signs 02/19/18 10:35 02/19/18 11:06 02/19/18 12:00 Temperature 98.0 F Pulse Rate 72 85 60 Respiratory Rate 17 18 18 Blood Pressure 150/63 H 155/68 H Pulse Oximetry 98 97 02/19/18 16:00 02/19/18 17:20 02/19/18 20:00 Temperature 98.1 F 99.3 F Pulse Rate 65 63 67 Respiratory Rate 18 18 20 Blood Pressure 135/65 169/70 H Pulse Oximetry 100 97 02/19/18 20:40 02/20/18 00:00 02/20/18 03:42 Temperature 97.9 F Pulse Rate 67 67 75 Respiratory Rate 18 20 18 Blood Pressure 156/69 H Pulse Oximetry 96 02/20/18 04:00 Temperature 98.3 F Pulse Rate 73 Respiratory Rate 18 Blood Pressure 160/69 H Pulse Oximetry 96 Intake & Output 02/19/18 02/20/18 02/20/18 18:59 06:59 18:59 Intake Total 3500 / 3500 Balance 3500 / 3500 Weight 88.451 kg Intake: IV 3500 / 3500 LR 1000 mL Inj 1,000 ML @ 100 1000 / 1000 mls/hr IV.CONT .Q10H DOUG Rx#: [id number] NS Inj 1,000 ML @ 84 mls/hr IV. 1000 / 1000 CONT .[id number] DOUG Rx#:[id number] Azithromycin Inj 500 MG In NS 250 / 250 Inj 250 ML @ 250 mls/hr IV.SIG Q24H DOUG Rx#:[id number] Rocephin Inj 1,000 MG In NS Inj 100 / 100 100 ML @ 200 mls/hr IV.SIG Q24H DOUG Rx#:[id number] Other: # Voids 4 Weight On Admission 88.451 kg Narrative: a x o x 3, no ditress anicteric lungs- no rales regular rhythm, occasional skip beat on exam abdomen soft, nontender, no CVA tenderness extremities no edema neuro exam non focal gait steady Results - Labs CBC & Chem 7: 02/19/18 02:27 02/20/18 08:40 Laboratory Results - last 24 hr 02/18/18 02/19/18 16:55 02:27 Hemoglobin A1c 6.4 H Urine Color Yellow Urine Clarity Hazy H Urine pH 5.0 Ur Specific [place] 1.008 Urine Protein Negative Urine Glucose (UA) Negative Urine Ketones Trace Urine Occult Blood Moderate H Urine Nitrate Positive H Urine Bilirubin Negative Urine Urobilinogen 2.0 H Ur Leukocyte Esterase Large H Urine RBC 2 Urine WBC 54 H Urine Bacteria Moderate H Urine Mucus Few H Micro UA Comment Culture indicated Urine Culture Comments Culture indicated Microbiology 02/18/18 16:55 Clean Catch Urine Urine Culture - Preliminary gram negative rods 02/18/18 12:15 Blood - Peripheral Aerobic Blood Culture - Preliminary No growth in 1 day 02/18/18 12:15 Blood - Peripheral Anaerobic Blood Culture - Preliminary gram negative rods 02/18/18 12:05 Blood - Peripheral Aerobic Blood Culture - Preliminary No growth in 1 day 02/18/18 12:05 Blood - Peripheral Anaerobic Blood Culture - Preliminary Escherichia coli - Imaging Impressions Abdomen/Bladder Ultrasound 02/19/18 00:00 CONCLUSION: 1. Unremarkable bilateral renal ultrasound. Assessment and Plan - Plan 77 years old E coli sepsis likely from UTI Pneumonia- lingular infiltrate on CXR - continue on Rocephin and Zithromax - minmal respiratory symptoms Continue on Mucinex Duo nebs Incentive spirometry repeat blood cultures today to ensure clearance Infectious disease service consulted for recommendation ARRON- continue IVF- decrease rate BMP recheck today Coronary artery disease History of ? arrhythmia- a fib vs PAC - continue on his Pradaxa - now states on Cardizmen CD 120 mg daily. will DC Metorpolol - states also on Lisinopruil 10 mg dialy- will start today - place on telemetry - she will bring all meds to go voer with nj - clonididne prn History of peripheral vascular occlusive disease with femoropopliteal artery disease continue on Pradaxa Hypertension resume home medications - continue on metoprolol tartrate 25 mg p.o. daily - some elevated readings - now states he is on Cardizem CD 120 mg daily - history of a fib Hypothyroidism continue on levothyroxine 75 MCG's daily Gout continue on allopurinol Hyperlipidemia continue on Lipitor GERD continue on Protonix DVT prophylaxis with Pradaxa. encourage up and ambulate ADD: discussed with patient and - US shows no mass or hydronephrosis - repeat blood cultures today to ensure clearance . I will update them with repeat cultures on phone - DC home today Levaquin 750 mg daily x 12 days - per ID recommendation Haert healthy diet . encourage po fluids OP ff up with PCP- repeat UA as OP after course of antibiotics
[2018-02-20] MEDS: Lactobacillus Acidophilus/L. Spores Tablet PO SCH ×3 (08:23→18:44)
[2018-02-20] MEDS: Pantoprazole Sodium 20 MG DR Tablet PO SCH (08:24)
[2018-02-20] MEDS: Allopurinol 100 MG Tablet PO SCH (08:24)
[2018-02-20] MEDS: Senna/Docusate Sodium 8.6/50 MG Tablet PO SCH (08:24)
[2018-02-20] MEDS: guaiFENesin 600 MG ER Tablet PO SCH (08:27)
[2018-02-20] MEDS ORDERED: dilTIAZem CD 120 MG Capsule PO ONE (08:30)
[2018-02-20] MEDS ORDERED: dilTIAZem CD 120 MG Capsule PO SCH (09:00)
[2018-02-20] MEDS ORDERED: Lisinopril 10 MG Tablet PO SCH ×2 (09:00→13:20)
[2018-02-20 09:20] LABS: Calcium 8.5 mg/dL (8.5-10.1)
--- NOTE | 2018-02-20 11:37 | P.CONID ---
History of Present Illness Service: ID Consult date: 02/20/18 Requesting Physician: Kadi Brown Reason for Consult: caitlin negative sepsis Primary Care Provider: Steve Medrano Chief Complaint: ABDOMINAL PAIN History of Present Illness: 44 yo male with multiple med problems presented to ER with c/o shakes, fever, chills and abdominal pain No fevers or luekocytosis noted, but quite abnormal UA with pyuria today blood and urine cultures growing E.coli Blood cultures with 4/4 positive bottles Pt is on azithro, Rocephin CT was doen and concern for linguilar ifiltrate no cough Review of Systems All other systems reviewed negative except as stated in HPI PMFSH - History History Provided By: Patient - Medical History Medical History: Medical History (Last Reviewed 02/20/18 @ 11:28 by Yenifer Santoro MD) Aortic valve disorder Arthritis Bowel obstruction CAD (coronary artery disease) Cataract Cataract fragments in both eyes following surgery Constipation Femoro-popliteal artery disease GERD (gastroesophageal reflux disease) Gout HTN (hypertension) High cholesterol Hypothyroid - Surgical History Surgical History: Surgical History (Last Reviewed 02/20/18 @ 11:28 by Yenifer Santoro MD) H/O aortic valve replacement H/O exploratory laparotomy History of cardiac cath History of intestinal surgery History of tonsillectomy S/P CABG x 3 Stented coronary artery - Family History Family History: Family History (Last Reviewed 02/20/18 @ 11:28 by Yenifer Santoro MD) Other Family history of hypertension - Tobacco History Second Hand Smoke Exposure: No Tobacco Use In Past 30 Days: No Smoking Status: Never smoker - Alcohol History How Often Do You Have a Drink Containing Alcohol: 2 to 3 times a week - Substance Use History Substance History: No History of Abuse - Travel History Recent Travel in the [place] Within the Last 8 Weeks: No Recent Travel Out of the Country Within the Last 8 Weeks: No - Immunization History Tetanus Immunization: <5 Years Hx Influenza Vaccine This Season: Yes Medications and Allergies Active Medications: Active Medications Acetaminophen (Tylenol) 650 mg PO Q4H PRN PRN Reason: TEMPERATURE > 101 F Al Hydroxide/Mg Hydroxide (Milk Of Magndarrin Liq) 30 ml PO Q12H PRN PRN Reason: Mild Constipation Albuterol (Duoneb Neb (Rain)) 1 ampul NEB Q6HR NEB RAIN Last Admin: 02/20/18 09:57 Dose: Not Given Albuterol (Duoneb Neb (Prn)) 1 ampul NEB Q4HR NEB PRN PRN Reason: SHORTNESS OF BREATH/WHEEZING Allopurinol (Zyloprim) 100 mg PO DAILY [facility] Last Admin: 02/20/18 08:24 Dose: 100 mg Atorvastatin Calcium (Lipitor) 80 mg PO DAILY [facility] Last Admin: 02/20/18 08:24 Dose: 80 mg Bisacodyl (Dulcolax Supp) 10 mg RECTAL DAILY PRN PRN Reason: SEVERE CONSITIPATION Clonidine HCl (Catapres) 0.1 mg PO Q6H PRN PRN Reason: HYPERTENSION Dabigatran (Pradaxa) 150 mg PO BID [facility] Last Admin: 02/20/18 08:23 Dose: 150 mg Diltiazem HCl (Cardizem Cd 24hr) 120 mg PO DAILY [facility] Last Admin: 02/20/18 10:22 Dose: 120 mg Guaifenesin (Mucinex Er) 600 mg PO BID [facility] Last Admin: 02/20/18 08:27 Dose: 600 mg Azithromycin 500 mg/ Sodium (Chloride) 250 mls @ 250 mls/hr IV.SIG Q24H [facility] Last Infusion: 02/19/18 21:39 Dose: Infused Ceftriaxone Sodium 1,000 mg/ (Sodium Chloride) 100 mls @ 200 mls/hr IV.SIG Q24H [facility] Last Infusion: 02/19/18 21:39 Dose: Infused Sodium Chloride (Ns Inj) 1,000 mls @ 84 mls/hr IV.CONT .[id number] [facility] Last Admin: 02/20/18 04:59 Dose: 84 mls/hr Lactobacillus Acidophilus (Lactinex) 1 tab PO TID [facility] Last Admin: 02/20/18 08:23 Dose: 1 tab Lactulose (Lactulose Liq) 30 ml PO DAILY PRN PRN Reason: SEVERE CONSITIPATION Levothyroxine Sodium (Synthroid) 75 mcg PO DAILY@0600 [facility] Last Admin: 02/20/18 05:00 Dose: 75 mcg Lisinopril (Prinivil) 10 mg PO DAILY [facility] Morphine Sulfate (Morphine Inj) 2 mg IV.PUSH Q3H PRN PRN Reason: PAIN 3-5; IF UABLE TO TAKE PO Morphine Sulfate (Morphine Inj) 4 mg IV.PUSH Q3H PRN PRN Reason: PAIN 6-10;IF UNABLE TO TAKE PO Naloxone HCl (Narcan Inj) 0.4 mg IV.PUSH UNSCH PRN PRN Reason: SEE LABEL COMMENTS Ondansetron HCl (Zofran Inj) 4 mg IV.PUSH Q6H PRN PRN Reason: NAUSEA OR VOMITING Oxycodone/Acetaminophen (Percocet 10/325 Mg) 1 tab PO Q6H PRN PRN Reason: PAIN SCALE 6 TO 10 Oxycodone/Acetaminophen (Percocet 5/325 Mg) 1 tab PO Q6H PRN PRN Reason: PAIN SCALE 3 TO 5 Pantoprazole Sodium (Protonix) 20 mg PO DAILY [facility] Last Admin: 02/20/18 08:24 Dose: 20 mg Senna/Docusate Sodium (Rachana-Colace) 1 tab PO BID [facility] Last Admin: 02/20/18 08:24 Dose: 1 tab Sennosides (Senokot) 17.2 mg PO Q12H PRN PRN Reason: Moderate Constipation Sodium Chloride (Ns Flush) 2 ml IV.FLUSH PRN PRN PRN Reason: FLUSH AFTER USING IV ACCESS Last Admin: 02/18/18 12:42 Dose: 2 ml Sodium Chloride (Ns Flush) 2 ml IV.FLUSH BID [facility] Last Admin: 02/19/18 20:34 Dose: Not Given Sodium Chloride (Ns Flush) 2 ml IV.FLUSH PRN PRN PRN Reason: FLUSH AFTER USING IV ACCESS Temazepam (Restoril) 15 mg PO HS PRN PRN Reason: INSOMNIA Allergies Allergy/AdvReac Type Severity Reaction Status Date / Time iodine Allergy Severe Swelling Verified 02/18/18 12:04 of Lip/Tongue/Throat Home Medications Medication Instructions Recorded Confirmed Type allopurinol 100 mg PO DAILY 02/18/18 02/18/18 History atorvastatin [Lipitor] 80 mg PO DAILY 02/18/18 02/18/18 History coQ10 (ubiquinol) 200 mg PO DAILY 02/18/18 02/18/18 History dabigatran etexilate [Pradaxa] 150 mg PO BID 02/18/18 02/18/18 History levothyroxine [Synthroid] 75 mcg PO DAILY 02/18/18 02/18/18 History metoprolol tartrate 25 mg PO DAILY 02/18/18 02/18/18 History pantoprazole 20 mg PO DAILY 02/18/18 02/18/18 History Cartia XT 120 mg PO DAILY 02/20/18 02/20/18 History lisinopril 10 mg PO DAILY 02/20/18 02/20/18 History Exam Vital signs: Vital Signs 02/19/18 12:00 02/19/18 16:00 02/19/18 17:20 Temperature 98.0 F 98.1 F Pulse Rate 60 65 63 Respiratory Rate 18 18 18 Blood Pressure 155/68 H 135/65 Pulse Oximetry 97 100 02/19/18 20:00 02/19/18 20:40 02/20/18 00:00 Temperature 99.3 F 97.9 F Pulse Rate 67 67 67 Respiratory Rate 20 18 20 Blood Pressure 169/70 H 156/69 H Pulse Oximetry 97 96 02/20/18 03:42 02/20/18 04:00 02/20/18 08:00 Temperature 98.3 F 97.6 F Pulse Rate 75 73 76 Respiratory Rate 18 18 16 Blood Pressure 160/69 H 188/81 H Pulse Oximetry 96 98 02/20/18 09:49 Temperature Pulse Rate Respiratory Rate Blood Pressure 170/78 H Pulse Oximetry Intake & Output 02/19/18 02/20/18 02/20/18 18:59 06:59 18:59 Intake Total 3500 / 3500 Balance 3500 / 3500 Weight 88.451 kg Intake: IV 3500 / 3500 LR 1000 mL Inj 1,000 ML @ 100 1000 / 1000 mls/hr IV.CONT .Q10H RAIN Rx#: [id number] NS Inj 1,000 ML @ 84 mls/hr IV. 1000 / 1000 CONT .[id number] RAIN Rx#:[id number] Azithromycin Inj 500 MG In NS 250 / 250 Inj 250 ML @ 250 mls/hr IV.SIG Q24H RAIN Rx#:[id number] Rocephin Inj 1,000 MG In NS Inj 100 / 100 100 ML @ 200 mls/hr IV.SIG Q24H RAIN Rx#:[id number] Other: # Voids 4 Weight On Admission 88.451 kg - Constitutional no acute distress, obese - Routine HEENT Exam Head: Present: normocephalic, atraumatic Eye: Present: EOMI, PERRL ENT: Present: mucous membranes moist, oropharynx clear - Routine Neck Exam Present: supple, full ROM - Routine Respiratory Exam Present: decreased breath sounds, CTA bilaterally - Routine Cardiovascular Exam Present: RRR, S1, S2 Comments: no murmurs, rubs gallops - Routine Abdominal Exam Present: soft Comments: not tender not distended no hepatosplenomegaly no masses - Routine Exam Comments: no CVA tenderness - Routine Extremities Exam Present: full ROM, normal capillary refill Comments: no cyanosis, clubing or edema - Routine Skin Exam Present: intact, dry, warm Comments: no rash - Routine Neurological Exam Present: alert, oriented X3, CN II-XII intact, moving all extremities, vision grossly intact, hearing grossly intact, normal speech - Routine Psychiatric Exam Present: normal affect, normal thought process, cooperative Results - Labs CBC & Chem 7: 02/19/18 02:27 02/20/18 08:40 Labs: Laboratory Results - last 24 hr 02/18/18 02/19/18 02/20/18 16:55 02:27 08:40 Sodium 141 Potassium 4.0 Chloride 110 H Carbon Dioxide 21.0 Anion Gap 10 BUN 16 Creatinine 1.09 Estimated GFR 66 L Random Glucose 141 H Hemoglobin A1c 6.4 H Calcium 8.5 D Urine Color Yellow Urine Clarity Hazy H Urine pH 5.0 Ur Specific [place] 1.008 Urine Protein Negative Urine Glucose (UA) Negative Urine Ketones Trace Urine Occult Blood Moderate H Urine Nitrate Positive H Urine Bilirubin Negative Urine Urobilinogen 2.0 H Ur Leukocyte Esterase Large H Urine RBC 2 Urine WBC 54 H Urine Bacteria Moderate H Urine Mucus Few H Micro UA Comment Culture indicated Urine Culture Comments Culture indicated - Imaging Impressions Abdomen/Bladder Ultrasound 02/19/18 00:00 CONCLUSION: 1. Unremarkable bilateral renal ultrasound. Chest X-Ray 02/18/18 11:55 CONCLUSION: Mild increased density at the left base likely related to mild atelectasis or consolidation. There is questionable nodularity seen in the left lower lung adjacent to left heart border. This could be followed up with a CT examination of the chest. Pulmonary Perfusion Imaging 02/18/18 14:06 CONCLUSION: Nonsegmental perfusion abnormalities, as such low probability for pulmonary embolism. Chest CT 02/18/18 15:56 CONCLUSION: 1. Lingular infiltrate and small left effusion. 2. Tiny right lung nodules can be followed. Abdomen/Bladder Ultrasound 02/19/18 00:00 CONCLUSION: 1. Unremarkable bilateral renal ultrasound. Assessment and Plan - Plan E.coli UTI - rojo S E.coli sepsis fu repeat blood clx CXR in am will switch to levaquin 750 mg PO daily to complete 14 days upon dc fu with PCP aiyana Brown
[2018-02-20 13:09] VITALS: RESP 18
[2018-02-20 14:04] LABS: Bilirubin,Urine Negative (Negative); Clarity,Urine Clear (Clear); Color,Urine Straw (Yellw/Straw); Glucose,Urine (UA) Negative (Negative); Leukocyte Esterase,Urine Negative (Negative); Nitrite,Urine Negative (Negative); Specific Gravity,Urine 1.003 (1.002-1.035)
[2018-02-20 17:11] VITALS: BP 159/68; PULSE 61; TEMP 98.1; O2SAT 97
[2018-02-20] MEDS ORDERED: levoFLOXacin 750 MG Tablet PO SCH (18:30)
== END 2018-02-20 19:38 | disposition home or self-care (01) ==
LOC: NEDA 11:20 → NEPC 11:20 → NEDH 23:05 → NEPFCDU 02-19 12:39
PROVIDERS: ADMIT Internal Medicine; ATTEND Internal Medicine